=== PATIENT | male | born 1960 | race Caucasian/White ===

== ENCOUNTER 2019-03-24 17:34 | Emergency (ER) | payer BC ==
--- NOTE | 2019-03-24 17:40 | EDM.PDOC ---
ED HPI GENERAL MEDICAL PROBLEM - General Chief Complaint: Lower Extremity Injury/Pain Stated Complaint: LEFT LEG SWOLLEN Time Seen by Provider: 03/24/19 17:36 Source of Information: Reports: Patient History Limitations: Reports: No Limitations - History of Present Illness INITIAL COMMENTS - FREE TEXT/NARRATIVE: HISTORY AND PHYSICAL: History of present illness: Patient is a 59-year-old male who presents to the emergency room with complaints of redness, swelling and pain to his right foot. States he noticed a small blister yesterday which had gotten larger and then this afternoon he now has redness to the midfoot. He denies any injury, trauma or falls. He states he is overall healthy and does not have any medical diagnoses and does not take any prescribed or [id number] medication. Patient denies any fever, chills, headache, change in vision, syncope or near syncope. Denies any chest pain, back pain, shortness of breath or cough. Denies any GI or symptoms. Patient has been eating and drinking appropriately. Review of systems: As per history of present illness and below otherwise all systems reviewed and negative. Past medical history: As per history of present illness and as reviewed below otherwise noncontributory. Surgical history: As per history of present illness and as reviewed below otherwise noncontributory. Social history: See social history for further information Family history: As per history of present illness and as reviewed below otherwise noncontributory. Physical exam: General: Well-developed and well-nourished 59-year-old male. Alert and oriented. Nontoxic-appearing and in no acute distress. HEENT: Atraumatic, normocephalic, pupils equal and reactive bilaterally, negative for conjunctival pallor or scleral icterus, mucous membranes moist, trachea midline. No drooling or trismus noted. No meningeal signs. No hot potato voice noted. Lungs: Clear to auscultation, breath sounds equal bilaterally, chest nontender. Heart: S1S2, regular rate and rhythm without overt murmur Abdomen: Soft, nondistended, nontender. Negative for masses or hepatosplenomegaly. Negative for costovertebral tenderness. Skin: Right foot redness and soft tissue swelling to base of 3-5th toes extending into the mid-foot. Remaining skin is intact, warm, dry. No lesions or rashes noted. Extremities: See SKIN for details, strong pedal and pretibial pulse, moves all extremities per self without difficulty or deficits, negative for cords or calf pain. Neurovascular unremarkable. Neuro: Awake, alert, oriented. Cranial nerves II through XII unremarkable. Cerebellum unremarkable. Motor and sensory unremarkable throughout. Exam nonfocal. Notes: Patient showed me a picture of his foot from this morning which was only slightly reddened and approximately the size of a quarter, since this morning the redness is now extending to the mid foot. No acute findings are noted on foot x-ray. Lab work is unremarkable. I discussed with patient about admission versus a dose of IV antibiotics with outpatient antibiotics. He would prefer to be discharged home he states he will follow-up here in the emergency tomorrow for evaluation. We discussed signs and symptoms that would prompt him to return to the emergency room, he voices understanding. His vital signs are stable. Patient will return tomorrow for reevaluation, Dr Alcala (MD on staff today/tomorrow) is aware of patient returning. Diagnostics: CBC, CMP, Blood Culture, Foot X-ray Therapeutics: Nati Impression: Cellulitis, foot Plan: 1. Rest and elevate the extremity. Keep the skin clean and dry. Do not apply any topical ointments. Continue to monitor the site for worsening symptoms as we discussed. I would like you to return tomorrow for reevaluation. 2. Take the antibiotic as prescribed. You can alternate Tylenol and ibuprofen as needed for pain management 3. Follow-up with your primary care provider as we discussed. Return to the ED as needed and as discussed Definitive disposition and diagnosis as appropriate pending reevaluation and review of above. right foot Pain Score (Numeric/FACES): 4 - Related Data Allergies Allergy/AdvReac Type Severity Reaction Status Date / Time No Known Allergies Allergy Verified 03/24/19 17:55 Home Meds: Home Meds cephALEXin [Keflex] 500 mg PO TID 7 Days #21 cap 03/24/19 [Rx] Review of Systems - Review of Systems Review Of Systems: Comprehensive ROS is negative, except as noted in HPI. ED EXAM, GENERAL - Physical Exam Exam: See Below (See dictation) Course - Vital Signs Last Recorded V/S: Last Vital Signs Temp 97.0 F 03/24/19 17:57 Pulse 66 03/24/19 17:57 Resp 18 03/24/19 17:57 BP 146/78 H 03/24/19 17:57 Pulse Ox 99 03/24/19 17:57 - Orders/Labs/Meds Orders: Active Orders 24 hr Category Date Time Status CULTURE BLOOD [BC] Stat Lab 03/24/19 18:13 Received CULTURE BLOOD [BC] Stat Lab 03/24/19 18:23 Received cefTRIAXone [Rocephin in Dextrose,Iso-Osm 1 GM/50 ML] 1 Med 03/24/19 19:00 Ordered gm Premix Bag 1 bag IV ONETIME Blood Culture x2 Reflex Set [OM.PC] Stat Oth 03/24/19 18:03 Ordered Medication Orders Ceftriaxone Sodium/Dextrose 1 (gm/ Premix) 50 mls @ 100 mls/hr IV ONETIME ONE Stop: 03/24/19 19:29 Last Admin: 03/24/19 19:04 Dose: 100 mls/hr Labs: Laboratory Tests 03/24/19 03/24/19 Range/Units 18:13 18:13 WBC 10.04 (4.0-11.0) K/uL RBC 5.41 (4.50-5.90) M/uL Hgb 16.9 (13.0-17.0) g/dL Hct 47.5 (38.0-50.0) % MCV 87.8 (80.0-98.0) fL MCH 31.2 (27.0-32.0) pg MCHC 35.6 (31.0-37.0) g/dL RDW Std Deviation 43.5 (28.0-62.0) fl RDW Coeff of Teetee 14 (11.0-15.0) % Plt Count 198 (150-400) K/uL MPV 10.90 (7.40-12.00) fL Neut % (Auto) 57.8 (48.0-80.0) % Lymph % (Auto) 30.4 (16.0-40.0) % Butler % (Auto) 8.5 (0.0-15.0) % Eos % (Auto) 3.0 (0.0-7.0) % Baso % (Auto) 0.3 (0.0-1.5) % Neut # (Auto) 5.8 H (1.4-5.7) K/uL Lymph # (Auto) 3.1 H (0.6-2.4) K/uL Butler # (Auto) 0.9 H (0.0-0.8) K/uL Eos # (Auto) 0.3 (0.0-0.7) K/uL Baso # (Auto) 0.0 (0.0-0.1) K/uL Nucleated RBC % 0.0 /100WBC Nucleated RBCs # 0 K/uL Sodium 141 (136-148) mmol/L Potassium 3.7 (3.5-5.1) mmol/L Chloride 105 (98-107) mmol/L Carbon Dioxide 27.6 (21.0-32.0) mmol/L BUN 20 H (7.0-18.0) mg/dL Creatinine 1.1 (0.8-1.3) mg/dL Est Cr Clr Drug Dosing 86.14 mL/min Estimated GFR (MDRD) > 60.0 ml/min Glucose 85 (74-106) mg/dL Calcium 8.5 (8.5-10.1) mg/dL Total Bilirubin 0.4 (0.2-1.0) mg/dL AST 39 H (15-37) IU/L ALT 32 (14-63) IU/L Alkaline Phosphatase 63 (46-116) U/L Total Protein 7.0 (6.4-8.2) g/dL Albumin 3.6 (3.4-5.0) g/dL Globulin 3.4 (2.6-4.0) g/dL Albumin/Globulin Ratio 1.1 (0.9-1.6) Meds: Medications Generic Name Dose Route Start Last Admin Trade Name Freq PRN Reason Stop Dose Admin Ceftriaxone Sodium/Dextrose 1 50 mls @ 100 mls/hr 03/24/19 19:00 03/24/19 19: 04 gm/ Premix IV 03/24/19 19:29 100 mls/hr ONETIME ONE Administration Discontinued Medications Generic Name Dose Route Start Last Admin Trade Name Freq PRN Reason Stop Dose Admin Ceftriaxone Sodium 1 gm 03/24/19 18:38 03/24/19 18:45 Rocephin IM 03/24/19 18:39 Not Given ONETIME ONE Departure - Departure Time of Disposition: 19:15 Disposition: Home, Self-Care 01 Clinical Impression: Cellulitis Qualifiers: Site of cellulitis: extremity Site of cellulitis of extremity: lower extremity Laterality: right Qualified Code(s): L03.115 - Cellulitis of right lower limb - Discharge Information Prescriptions: cephALEXin [Keflex] 500 mg PO TID 7 Days #21 cap Instructions: Cellulitis, Adult, [id number] Referrals: PCP,Not In Area [Primary Care Provider] - Forms: ED Department Discharge Additional Instructions: The following information is given to patients seen in the emergency department who are being discharged to home. This information is to outline your options for follow-up care. We provide all patients seen in our emergency department with a follow-up referral. The need for follow-up, as well as the timing and circumstances, are variable depending upon the specifics of your emergency department visit. If you don't have a primary care physician on staff, we will provide you with a referral. We always advise you to contact your personal physician following an emergency department visit to inform them of the circumstance of the visit and for follow-up with them and/or the need for any referrals to a consulting specialist. The emergency department will also refer you to a specialist when appropriate. This referral assures that you have the opportunity for follow-up care with a specialist. All of these measure are taken in an effort to provide you with optimal care, which includes your follow-up. Under all circumstances we always encourage you to contact your private physician who remains a resource for coordinating your care. When calling for follow-up care, please make the office aware that this follow-up is from your recent emergency room visit. If for any reason you are refused follow-up, please contact the [facility] Emergency Department at and asked to speak to the emergency department charge nurse. [facility] [address] [place] [id number] [id number] 1. Rest and elevate the extremity. Keep the skin clean and dry. Do not apply any topical ointments. Continue to monitor the site for worsening symptoms as we discussed. I would like you to return tomorrow for reevaluation. 2. Take the antibiotic as prescribed. You can alternate Tylenol and ibuprofen as needed for pain management 3. Follow-up with your primary care provider as we discussed. Return to the ED as needed and as discussed Sepsis Event Note - Focused Exam Vital Signs: Vital Signs Temp Pulse Resp BP Pulse Ox 03/24/19 17:57 97.0 F 66 18 146/78 H 99 Date Exam was Performed: 03/24/19 Time Exam was Performed: 19:13 - My Orders Last 24 Hours: My Active Orders 03/24/19 18:03 Blood Culture x2 Reflex Set [OM.PC] Stat 03/24/19 18:13 CULTURE BLOOD [BC] Stat 03/24/19 18:23 CULTURE BLOOD [BC] Stat 03/24/19 19:00 cefTRIAXone [Rocephin in Dextrose,Iso-Osm 1 GM/50 ML] 1 gm Premix Bag 1 bag IV ONETIME - Assessment/Plan Last 24 Hours: My Active Orders 03/24/19 18:03 Blood Culture x2 Reflex Set [OM.PC] Stat 03/24/19 18:13 CULTURE BLOOD [BC] Stat 03/24/19 18:23 CULTURE BLOOD [BC] Stat 03/24/19 19:00 cefTRIAXone [Rocephin in Dextrose,Iso-Osm 1 GM/50 ML] 1 gm Premix Bag 1 bag IV ONETIME
--- NOTE | 2019-03-24 18:26 | CR ---
Right foot: 2 views of the right foot were obtained. Comparison: No previous foot exam. Plantar spur is seen. Small detached spur is noted at the attachment of the Achilles tendon to the calcaneus. No fracture or other bony abnormality is seen. No bony erosions are seen. Impression: 1. Calcaneal spurs as noted above. 2. Nothing acute is seen. Nothing is identified at this time to indicate osteomyelitis. Diagnostic code #2 Study was dictated in [place] Standard Time
[2019-03-24] MEDS ORDERED: cefTRIAXone 1 GM Vial IM ONE (18:38)
[2019-03-24 18:50] LABS: BLOOD UREA NITROGEN,BUN 20 mg/dL (7.0-18.0); CARBON DIOXIDE,CO2 27.6 mmol/L (21.0-32.0); CHLORIDE,CL 105 mmol/L (98-107); GLUCOSE RANDOM 85 mg/dL (74-106); POTASSIUM,K 3.7 mmol/L (3.5-5.1); SODIUM,NA 141 mmol/L (136-148)
[2019-03-24] MEDS ORDERED: cefTRIAXone 1 GM in Premix Bag 1 BAG IV ONE (19:00)
--- NOTE | 2019-03-24 20:41 | US ---
Ankle brachial index Ankle-brachial index on the right side is 1.18 and ankle-brachial index on the left side is 1.20. Impression: 1. Normal ankle brachial index values within both lower extremities. Diagnostic code #1 Study was dictated in [place] Standard Time
== END 2019-03-24 21:00 | disposition home or self-care (01) ==
LOC: MW.ED 17:34
DX: L03.115 Cellulitis of right lower limb (principal)
CPT/HCPCS: 36415; 73620; 80053; 85025; 87040; 93922; 96365; 99284; J0696

== ENCOUNTER 2019-03-25 17:50 | Emergency (ER) | payer BC ==
--- NOTE | 2019-03-25 19:07 | EDM.PDOC ---
ED HPI GENERAL MEDICAL PROBLEM - General Chief Complaint: Skin Complaint Stated Complaint: NEED TO BE SEEN Time Seen by Provider: 03/25/19 19:34 - History of Present Illness INITIAL COMMENTS - FREE TEXT/NARRATIVE: HPI 59-year-old obese male presents for repeat evaluation of right distal dorsal foot erythema, swelling, warmth, and tenderness that extends onto the proximal aspect of the right 4th posterior medial toe, has been on antibiotics for 24 hours with improvement of symptoms. Patient notes a is taking cephalexin 3 times daily. No systemic symptoms. Notes normal sensation in right foot. Works in the office setting. ROS with no recent constitutional symptoms. Exam HR 64, RR 15, BP 193/94, T 35.5C, SaO2 99% on room air at 6:44 PM. Gen: Pleasant, nontoxic-appearing, resting comfortably. HEENT: NC, AT, PEERL, EOMI. Resp: Unlabored respirations with a normal work of breathing. Card: Extremities warm and well perfused. GI: Non-distended. : Deferred MSK: No visible deformities, strength and tone without visually appreciable deficit. Neuro: alert and oriented 3, no facial asymmetry, vision and hearing WNL. Heme/Lymph: Deferred Skin: right foot with approximately 3 cm of mild erythema, mild warmth, no fluctuance or crepitus, mild tenderness extending posteriorly/medially from the base of the right 4th toe with mild erythema on the posterior medial aspect of the toe. Anjelica proximal to the toe is a flaccid blisters approximately 1.5 x 0.5 cm long (transverse orientation), immediately proximal and medial to this is approximately 0.5 cm in diameter soft, intact blister. Foot otherwise visually normal. 2+ DP pulse. Sensation intact to touch in all toes. Patient able comfortably flex and extend all toes. Area of erythema well inside a 2nd marker demarcation. Psych: Mood and affect appropriate. MDM Previous chart, nursing note, and vitals reviewed. A: 59-year-old obese male presents for repeat evaluation of right distal dorsal foot erythema, swelling, warmth, and tenderness that extends onto the proximal aspect of the right 4th posterior medial toe, has been on antibiotics for 24 hours with improvement of symptoms. DDx & Evaluation: patient with clinically improving cellulitis, no features suggestive of necrotizing fasciitis, abscess, or systemic symptoms. Discussed management options with patient, no identifiable high-risk features for MRSA, dosing may be suboptimal with TID, discussed with patient (noted improvement and that staying the course with the current dosing could be considered acceptable) versus increasing dosing, patient wished to increase dosing and will follow up with PCP regarding his hypertension. Impression: cellulitis. - Related Data Allergies Allergy/AdvReac Type Severity Reaction Status Date / Time No Known Allergies Allergy Verified 03/24/19 17:55 Home Meds: Home Meds cephALEXin [Keflex] 500 mg PO TID 7 Days #21 cap 03/24/19 [Rx] cephALEXin [Keflex] 500 mg PO Q6H #19 cap 03/25/19 [Rx] Past Medical History - Past Health History Medical/Surgical History: Denies Medical/Surgical History Dermatologic History: Reports: Cellulitis - Infectious Disease History Infectious Disease History: Reports: Chicken Pox, Measles, Mumps Social & Family History - Family History Family Medical History: Noncontributory - Tobacco Use Smoking Status *Q: Never Smoker - Recreational Drug Use Recreational Drug Use: No ED ROS GENERAL - Review of Systems Review Of Systems: See Below ED EXAM, SKIN/RASH Exam: See Below Course - Vital Signs Last Recorded V/S: Last Vital Signs Temp 35.5 C 03/25/19 18:44 Pulse 64 03/25/19 18:44 Resp 15 03/25/19 18:44 BP 193/94 H 03/25/19 18:44 Pulse Ox 99 03/25/19 18:44 Departure - Departure Time of Disposition: 19:32 Disposition: Home, Self-Care 01 Clinical Impression: Cellulitis Qualifiers: Site of cellulitis: extremity Site of cellulitis of extremity: lower extremity Laterality: right Qualified Code(s): L03.115 - Cellulitis of right lower limb - Discharge Information Prescriptions: cephALEXin [Keflex] 500 mg PO Q6H #19 cap Referrals: PCP,Not In Area [Primary Care Provider] - Forms: ED Department Discharge Additional Instructions: You were in seen in the [facility] Emergency Department for evaluation of a skin infection, your cellulitis appears to be healing well. You have been prescribed additional cephalexin, you should take 500 mg 4 times daily for 10 days total. Please read and follow all of the instructions below. Please follow up with your primary care physician as needed. When calling for follow-up care, please make the office aware that this follow-up is from your recent emergency room visit. If for any reason you are refused follow-up, please contact the [facility] Emergency Department at and asked to speak to the emergency department charge nurse. Your care today was limited to identifying and treating emergent medical problems only. Many people have subtle differences in their test results that require follow up with their outpatient physician(s) to correctly determine if this represents a normal variation or concerning abnormality with respect to your specific health. The care given to you today was limited to identifying and treating emergent medical problems - you need to request a copy of all of your medical records from today's visit and follow up with your outpatient physician(s) to review both today's visit and your overall health. If you have any new symptoms or if you are at all concerned about your health please return immediately to the emergency department. You were diagnosed with cellulitis. This is a bacterial infection of the skin. Symptoms are usually redness, swelling, and warmth in the affected area. Some people get a fever (temperature higher than 100.4F / 38C) with this infection. * Cellulitis is treated with antibiotics and pain control. * Redness, swelling, warmth, and fever should start to get better after 1-2 days of treatment. If you are not improving please see your primary care physician or return to this or the nearest emergency department. If you were directed during your exam or if you have any concerns about your infection please follow up promptly with your primary care physician or in an emergency department. * If possible, outline the infection once every 24 hours and take a picture to show to your physician in case you need further treatment. YOU SHOULD SEEK MEDICAL ATTENTION IMMEDIATELY, EITHER HERE OR AT THE NEAREST EMERGENCY DEPARTMENT, IF ANY OF THE FOLLOWING OCCURS: * Redness spreads even with treatment. You can vikash the infection area with a pen. This will help watch for improvement or spreading. * Fever (temperature higher than 100.4F / 38C) does not go away or gets worse after 2-3 days of antibiotics. * Unusual or increasing pain in the infected area. * Lightheadedness. * Feeling sicker at any time or not getting better as expected. Cephalexin (Brand Name: Keflex) * Take as directed on the prescription. * Take the full prescribed course of medications. SIDE EFFECTS: Diarrhea, dizziness, headache, or stomach upset may occur. If any of these effects persist or worsen, tell your doctor or pharmacist promptly. Tell your doctor immediately if any of these rare but very serious side effects occur: severe stomach/abdominal pain, persistent nausea/vomiting, yellowing eyes /skin, dark urine, change in the amount of urine, new signs of infection (e.g., fever, persistent sore throat), easy bruising/bleeding, mental/mood changes ( e.g., agitation, confusion). This medication may rarely cause a severe intestinal condition (Clostridium difficile-associated diarrhea) due to a resistant bacteria. This condition may occur during treatment or weeks to months after treatment has stopped. Tell your doctor immediately if you develop persistent diarrhea, abdominal or stomach pain/cramping, blood/mucus in your stool. Do not use anti-diarrhea products or narcotic pain medications if you have any of these symptoms because these products may make them worse. Use of this medication for prolonged or repeated periods may result in oral thrush or a new vaginal yeast infection. Contact your doctor if you notice white patches in your mouth, a change in vaginal discharge, or other new symptoms. A very serious allergic reaction to this drug is rare. However, seek immediate medical attention if you notice any symptoms of a serious allergic reaction, including: rash, itching/swelling (especially of the face/tongue/throat), severe dizziness , trouble breathing. This is not a complete list of possible side effects. If you notice other effects not listed above, contact your doctor or pharmacist. PRECAUTIONS: Before taking cephalexin, tell your doctor or pharmacist if you are allergic to it; or to penicillins or other cephalosporins (e.g., cefpodoxime ); or if you have any other allergies. This product may contain inactive ingredients, which can cause allergic reactions or other problems. Talk to your pharmacist for more details. Before using this medication, tell your doctor or pharmacist your medical history, especially of: kidney disease, stomach/ intestinal disease (e.g., colitis). This drug may make you dizzy. Do not drive, use machinery, or do any activity that requires alertness until you are sure you can perform such activities safely. Limit alcoholic beverages. The liquid form of this product may contain sugar. Caution is advised if you have diabetes. Ask your doctor or pharmacist about using this product safely. Kidney function declines as you grow older. This medication is removed by the kidneys. Therefore, older adults may be at greater risk for side effects while using this drug. During , this medication should be used only when clearly needed. Discuss the risks and benefits with your doctor. This medication passes into breast milk. Consult your doctor before breast-feeding. DRUG INTERACTIONS: Your doctor or pharmacist may already be aware of any possible drug interactions and may be monitoring you for them. Do not start, stop, or change the dosage of any medicine before checking with them first. Before using this medication, tell your doctor or pharmacist of all prescription and nonprescription/herbal products you may use, especially of: vaccines that contain live bacteria (e.g., typhoid, BCG), metformin, probenecid. This medication may decrease the effectiveness of combination-type control pills. This can result in . You may need to use an additional form of reliable control while using this medication. Consult your doctor or pharmacist for details. This medication may interfere with certain laboratory tests (including Mt' test, certain urine glucose tests), possibly causing false test results. Make sure laboratory personnel and all your doctors know you use this drug. This document does not contain all possible interactions. Therefore, before using this product, tell your doctor or pharmacist of all the products you use. Keep a list of all your medications with you, and share the list with your doctor and pharmacist. High Blood Pressure (Hypertension) When you were in the emergency department you had an abnormally high blood pressure. High blood pressure can be without symptoms. However high blood pressure can lead to many medical problems including kidney disease, strokes, and heart attacks. Your blood pressure may have been elevated due to pain or the stress of being in the emergency department, however half of people with an elevated blood pressure in the emergency department have custodial problems with high blood pressure. Please see your primary care physician in 2-3 days for a repeat check of your blood pressure. This may help prevent many health serious problems in the future. Please return to the emergency department if you develop any of the following: chest pain, shortness of breath, new or severe headache, changes in vision or hearing, weakness, or if you are otherwise concerned about your health. Prescriptions: If you are uninsured or have financial difficulties with filling your prescription(s), you may consider using a free pharmacy discount service such as [employer] ([employer]) or [employer] ([employer]). These services allow you to search for a medication on your phone (or computer) and obtain a coupon that usually has a significant discount from the list maradiaga at a pharmacy. Your physician as well as [facility] does not have a financial relationship with either of these services. You may also wish to speak with your physician to determine if lower cost prescriptions are possible. Obtaining primary care: 1. [facility] provides pediatrics (children), family medicine (children, adults, and some obstetrical care), and internal medicine (adults). Further specialty care is also available. Same day appointments are available. They may be contacted at [phone] and are open Sunday through Sunday 8 AM to 5 PM. The [facility] are located at [facility], [address] [place] [address]. 2. [facility] offers family medicine, internal medicine, [facility], and further specialty care. [facility] may be contacted at [phone]. [facility] is located at [address] [facility] [address]. 3. If you have health insurance, please also contact your insurer for a list of accepting providers under your policy, you may contact these providers for further health care. Occupational health: Work related injuries may consider following up with [facility], . Occupational health services are located at [address] [place] [address] and are open Sunday through Sunday from 7: 30 am to 5:00 pm. Obstetrical and Gynecological Care: [facility], , Sunday through Sunday 8 AM to 5 PM. [address] [address]. Eyecare: If you have an eye injury you should follow up with your sanitation truck cleaner or with [facility], at [phone] or [phone] , they are located at [address] [place] [address]. Dental Care * Wil Lobo DDS. [address] [facility] [place], [place]. Ph. [phone] * Vicente Lobo DDS MS. [address] [facility] [address], [place], [place]. Ph. [phone] * Vinicio Humphrey DDS. [address] 02[address] [place] [address]. Ph. [phone] * Malachi Thrasher DDS. [address] [facility] [address] [place], [place]. Ph. [phone] * Getachew Henderson D[facility] PC. [address] [facility] [address] [place], [place]. Ph. [phone] * Dexter Thakkar DDS. [address] [facility]. Ph. [phone] * [facility]. [address] [place], [place]. Ph. [phone] * [facility]. [address] [place] [address], [place], [place]. Ph. [phone] * [facility] [address] [place] [address]. Ph. * [facility]. [address] [place] [address] [address] [place], [place]. Ph. [phone] * [facility]. [address] [facility] [place]. Ph. [phone] Sepsis Event Note - Evaluation Sepsis Screening Result: No Definite Risk - Focused Exam Vital Signs: Vital Signs Temp Pulse Resp BP Pulse Ox 03/25/19 18:44 35.5 C 64 15 193/94 H 99 Date Exam was Performed: 03/25/19 Time Exam was Performed: 19:23
== END 2019-03-25 20:09 | disposition home or self-care (01) ==
LOC: MW.ED 17:50
DX: L03.115 Cellulitis of right lower limb (principal)
CPT/HCPCS: 99282